=== PATIENT | male | born 1970 | race Caucasian/White ===

== ENCOUNTER 2019-01-08 08:06 | Outpatient (CLI) | payer BC ==
--- NOTE | 2019-01-08 08:34 | ULT ---
US Gallbladder RUQ: 01/08/2019 12:00 AM CLINICAL HISTORY: Elevated LFTs. STUDY: Limited right upper quadrant ultrasound of abdomen. COMPARISON: None. FINDINGS: Liver: Size: Normal. Echogenicity: Hyperechoic consistent with hepatic steatosis. Contour: Smooth. Mass: None. Bile ducts: No intrahepatic or extrahepatic biliary dilatation. Common bile duct not visualized. Gallbladder: Normal. Pancreas: Not visualized Right kidney: No pelvicalyceal dilatation. Right kidney measuring 10.3 cm in length. IMPRESSION: Fatty liver
== END 2019-01-08 08:07 | disposition home or self-care (01) ==
LOC: BICULT 08:06
PROVIDERS: ATTEND Family Medicine
DX: K76.0 Fatty (change of) liver, not elsewhere classified (principal); R74.8 Abnormal levels of other serum enzymes
CPT/HCPCS: 76705

== ENCOUNTER 2023-04-17 13:05 | Outpatient (CLI) | payer BC | END 2023-04-17 13:06 | disposition home or self-care (01) | LOC: ULT 13:05 | PROVIDERS: ATTEND Family Medicine | DX: M79.661 Pain in right lower leg (principal) ==

== ENCOUNTER 2023-09-01 12:03 | Outpatient (CLI) | payer BC | END 2023-09-01 12:04 | disposition home or self-care (01) | LOC: SCSRAD 12:03 | PROVIDERS: ATTEND Family Medicine | DX: R05.3 Chronic cough (principal); I51.7 Cardiomegaly | CPT/HCPCS: 71046 ==